=== PATIENT | female | born 1975 | race Caucasian/White ===

== ENCOUNTER → 2017-09-03 | Outpatient (CLI) | payer OTHER, SELFPAY ==
[~2017-09-03] MED LIST: ALBU90OI6 INH; AMOCLA500 PO; AMOX500 PO; Adipex-P37.5 MG PO; BCP; BENZ100A PO; BIRTH CONTROL; CARV6.25 PO; CEFU250 PO; CLIN150 PO; CYAN1000I IM; Cleocin HCl150 MG PO; Diflucan150 MG PO; ESCI5; Flonase 0.05% N16 GM; HYDACE5 PO; IRON150C PO; LEVFLO500 PO; LEVSOD25 PO; LEVSOD75 PO; MEDR150I IM; MULVITMIND PO; Mucinex600 MG PO; NAPR500 PO; Norco 5-325 Ta1 EACH PO; OXYACE5T PO; PANT40 PO; PHENA200 PO; PSEU120ER PO; RANI150; RXCYCL10 PO; RXOXYACE PO; RXPHEN200 PO; RXSULTRIDS PO; SERT100 PO; SERT50 PO; SULTRIDS PO; TAMS.4ER PO; TEMA30 PO; TRAM50 PO; VITAMIN D35000 UNI1 PO; Vibramycin100 MG PO; ZOLP5 PO; Zofran Odt4 MG SL; [UNRECOGNIZED DRUG - CODE] SL; [UNRECOGNIZED DRUG - REMARK]
[2017-09-03 09:09] LABS: Specimen Source URINE
[2017-09-04 04:47] LABS: Source Urine
== END | disposition home or self-care (01) ==
LOC: LAB 09:06
PROVIDERS: Family Medicine
DX: Z13.9 Encounter for screening, unspecified (principal)
CPT/HCPCS: 87491; 87591

== ENCOUNTER 2018-03-13 21:49 | Emergency (ER) | payer OTHER ==
[~2018-03-13] VITALS: Ht 165.1 cm; Wt 145.2 kg
[~2018-03-13 21:49] MED LIST changes: -Adipex-P37.5 MG PO; -BIRTH CONTROL; -IRON150C PO; -LEVSOD75 PO; -TEMA30 PO; -VITAMIN D35000 UNI1 PO; -[UNRECOGNIZED DRUG - CODE] SL
[2018-03-13] MEDS ORDERED: LEVSOD75 PO (22:40)
[2018-03-13] MEDS ORDERED: VITAMIN D35000 UNI1 PO (22:41)
[2018-03-13] MEDS ORDERED: [UNRECOGNIZED DRUG - CODE] SL (22:42)
[2018-03-13] MEDS ORDERED: IRON150C PO (22:42)
[2018-03-13] MEDS ORDERED: Adipex-P37.5 MG PO (22:42)
[2018-03-13] MEDS ORDERED: BIRTH CONTROL (22:43)
[2018-03-13] MEDS ORDERED: TEMA30 PO (22:44)
[2018-03-13 23:15] LABS: BASOPHILS ABSOLUTE AUTO 0.02 K/mm3 (0.00-0.23); BASOPHILS PERCENT AUTO 0 % (0-2); EOSINOPHILS PERCENT AUTO 4 % (0-6); Hemoglobin 13.4 g/dL (11.5-16.0); IMMATURE GRAN ABSOLUTE AUTO 0.02 K/mm3 (0.00-0.10); IMMATURE GRAN PERCENT AUTO 0 % (0-1); LYMPHOCYTES ABSOLUTE AUTO 1.69 K/mm3 (0.84-5.20); LYMPHOCYTES PERCENT AUTO 22 % (21-46); MONOCYTES ABSOLUTE AUTO 0.71 K/mm3 (0.16-1.47); MONOCYTES PERCENT AUTO 9 % (4-13); Mean Corpuscular HGB 30.9 pg (26.0-34.0); Mean Corpuscular HGB Conc 33.5 g/dL (31.5-36.5); Mean Corpuscular Volume 92 fL (80-100); Mean Platelet Volume 9.4 fL (9.1-12.4); NEUTROPHILS ABSOLUTE AUTO 5.08 K/mm3 (1.96-9.15); NEUTROPHILS PERCENT AUTO 65 % (41-73); Platelet Count 222 K/mm3 (150-400); RDW Coefficient Variation 12.6 % (11.7-14.2); RDW Standard Deviation 42.9 fL (35.1-46.3); Red Blood Cell Count 4.34 M/mm3 (3.80-5.20); White Blood Cell Count 7.82 K/mm3 (4.00-11.30)
[2018-03-13 23:34] LABS: Alanine Aminotransfer (ALT/SGP 20 U/L (12-78); Albumin, Blood 3.5 g/dL (3.4-5.0); Albumin/Globulin Ratio 1.1 (0.8-1.8); Alk Phos 72 U/L (50-136); Anion Gap 7 mmol/L (6-16); Aspartate Aminotrans (AST/SGOT 19 U/L (12-37); Bilirubin, Total 0.3 mg/dL (0.1-1.0); Blood Urea Nitrogen 12 mg/dL (8-24); Bun/Creatinine Ratio 14.7 (12.0-20.0); CO2, Blood 26 mmol/L (21-32); Calcium, Blood 8.6 mg/dL (8.5-10.1); Chloride, Blood 107 mmol/L (98-108); Creatinine, Blood 0.82 mg/dL (0.40-1.00); Globulin, Blood 3.2 g/dL (2.2-4.0); Glomerular Filtration Rate >60 (60-); Glucose, Blood 95 mg/dL (70-99); Potassium, Blood 3.9 mmol/L (3.5-5.5); Sodium, Blood 140 mmol/L (136-145); Total Protein, Blood 6.7 g/dL (6.4-8.2)
[2018-03-14 00:11] LABS: Source, Urine Voided
[2018-03-14 00:13] LABS: Bilirubin, Urine Neg (Neg); Blood, Urine Neg (Neg); Glucose Qualitative, Urine Neg (Neg); Ketones, Urine Neg (Neg); Leukocyte Esterase, Urine Neg (Neg); Nitrite, Urine Neg (Neg); Protein, Urine Neg (Neg); Specific Gravity, Urine 1.025 (1.003-1.022); Urobilinogen, Urine NORM (Normal)
[2018-03-14 00:17] LABS: Appearance, Urine Clear (Clear); Color, Urine Yellow (P-Yellow)
== END 2018-03-14 00:54 | disposition home or self-care (01) ==
LOC: ER 21:49
PROVIDERS: Emergency Medicine
DX: E86.0 Dehydration (principal); R11.2 Nausea with vomiting, unspecified; R19.7 Diarrhea, unspecified; Z88.2 Allergy status to sulfonamides; Z88.8 Allergy status to other drugs, medicaments and biological substances; Z79.899 Other long term (current) drug therapy; Z87.891 Personal history of nicotine dependence
CPT/HCPCS: 36415; 80053; 81003; 81025; 83690; 85025; 96361; 96374; 99284-25; J2405; J7030

== ENCOUNTER 2020-07-02 10:55 | Day surgery (SDC) | payer OTHER ==
[~2020-07-02] VITALS: Ht 165.1 cm; Wt 150.5 kg
[~2020-07-02 10:55] MED LIST changes: +Adipex-P37.5 MG PO; +BIRTH CONTROL; +IRON150C PO; +LEVSOD75 PO; +LIOT5 PO; +PROBIOTIC PO; +PROG100 PO; +TEMA30 PO; +TESTOSTERONE200 MG PO; +VITAMIN D35000 UNI1 PO
--- NOTE | 2020-07-02 12:00 | NUR ---
Ambulatory in Day Surgery History, Chart, Medications and Allergies reviewed before start of procedure. Lungs clear T/O to Auscultation. Pre-Op teaching done. Pt verbalizes understanding.
--- NOTE | 2020-07-02 15:21 | NUR ---
Patient up to Ambulate independently. Gait steady. Discharge instructions reviewed with patient. Patient verbalizes understanding. Copy given to patient to take home. Discharged via wheelchair to private car for ride home.
== END 2020-07-02 23:47 | disposition home or self-care (01) ==
LOC: ORSCMMR 10:55 → ORD 12:30 → ORSCMMR 23:47
PROVIDERS: Obstetrics & Gynecology
PROC: 0UT74ZZ Resection of Bilateral Fallopian Tubes, Percutaneous Endoscopic Approach (ICD-10-PCS; principal; 2020-07-02 12:30)
DX: Z30.2 Encounter for sterilization (principal); I10 Essential (primary) hypertension; K21.9 Gastro-esophageal reflux disease without esophagitis; Z87.891 Personal history of nicotine dependence; E66.01 Morbid (severe) obesity due to excess calories; Z68.43 Body mass index [BMI] 50.0-59.9, adult; Z79.899 Other long term (current) drug therapy
CPT/HCPCS: 36415; 84703; 88302; A9270; J1100; J1885; J2250; J2405; J2704; J3010; J7120